=== PATIENT | male | born 1985 | race Caucasian/White ===

== ENCOUNTER 2018-06-22 17:19 | Emergency (ER) | payer MEDICAID ==
[~2018-06-22] VITALS: Ht 188 cm; Wt 142.9 kg
[2018-06-22 17:35] VITALS: BP 154/90
--- NOTE | 2018-06-22 17:40 | NUR ---
BIB SELF WITH C/O DOG BITE EARLIER TODAY ON LEFT ELBOW. PT STATES HE WAS SELLING SOLAR DOOR TO DOOR AND THE DOG BIT HIM. PT STATES THE DOG WAS A ARABIC LOVELACE NAMED "JIMENES." REDNESS AND BRUISING NOTED TO THE LEFT ELBOW. NO ACTIVE BLEEDING. DOCTOR MADE AWARE OF PATIENT'S STATUS
[2018-06-22 18:35] VITALS: BP 154/90
--- NOTE | 2018-06-22 18:35 | NUR ---
Patient discharged with v/s stable. Written and verbal after care instructions given and explained. Patient verbalized understanding. Ambulatory with steady gait. All questions addressed prior to discharge. Advised to follow up with PMD.
== END 2018-06-22 18:35 | disposition home or self-care (01) ==
LOC: MED 17:19
DX: S41.152A Open bite of left upper arm, initial encounter (principal); S50.312A Abrasion of left elbow, initial encounter; W54.0XXA Bitten by dog, initial encounter; Y93.89 Activity, other specified; Y92.89 Other specified places as the place of occurrence of the external cause; Y99.8 Other external cause status
CPT/HCPCS: 73080; 90471; 90715; 99283; Q0092

== ENCOUNTER 2019-01-06 18:05 | Emergency (ER) | payer MEDICAID, OTHER ==
[~2019-01-06] VITALS: Ht 188 cm; Wt 151.0 kg
[2019-01-06 18:30] VITALS: BP 140/85
--- NOTE | 2019-01-06 19:40 | NUR ---
CALLED FOR PT, NO ANSWER IN ER LOBBY OR IN FRONT OF ER. PT LWBS AT 1940
--- NOTE | 2019-01-06 19:50 | NUR ---
CALLED FOR PT FOR SECOND TIME, NO ANSWER IN ER LOBBY OR IN FRONT OF ER. PT LWBS AT 1940
--- NOTE | 2019-01-06 20:00 | NUR ---
CALLED FOR PT FOR THIRD TIME, NO ANSWER IN ER LOBBY OR IN FRONT OF ER. PT LWBS AT 1940
== END 2019-01-06 19:40 | disposition left against medical advice (07) ==
LOC: MED 18:05
DX: R51 Headache (principal); K13.79 Other lesions of oral mucosa; Z53.21 Procedure and treatment not carried out due to patient leaving prior to being seen by health care provider

== ENCOUNTER 2022-12-30 15:31 | Emergency (ER) | payer OTHER ==
[~2022-12-30] VITALS: Ht 188 cm; Wt 154.2 kg
[2022-12-30 15:46] VITALS: BP 136/86; PULSE 79; RESP 17; TEMP 97.6; O2SAT 98
[2022-12-30 16:37] LABS: BASOPHILS # (AUTO) 0.1 K/uL (0.00-0.22); BASOPHILS % (AUTO) 0.6 % (0.0-2.0); EOSINOPHILS # (AUTO) 0.1 K/uL (0-0.4); HEMATOCRIT 48.1 % (36-52); LYMPHOCYTES # (AUTO) 3.3 K/uL (2.0-11.5); LYMPHOCYTES % (AUTO) 32.2 % (20.5-51.1); MEAN CORPUSCULAR HEMOGLOBIN 29 pg (27-31); MEAN CORPUSCULAR HGB CONC 33 g/dL (33-37); MEAN CORPUSCULAR VOLUME 86.7 fL (80-94); MONOCYTES # (AUTO) 0.7 K/uL (0.8-1.0); MONOCYTES % (AUTO) 7.2 % (1.7-9.3); NEUTROPHILS # (AUTO) 6.1 K/uL (1.8-7.7); PLATELET COUNT (AUTO) 238 K/uL (140-450); RED BLOOD CELL COUNT(AUTO) 5.55 MIL/uL (4.20-6.10); RED CELL DISTRIBUTION WIDTH 14.3 % (11.6-13.7); WHITE BLOOD COUNT (AUTO) 10.3 K/uL (4.8-10.8)
[2022-12-30 16:48] VITALS: BP 134/81; PULSE 71; RESP 16; O2SAT 96
[2022-12-30 17:29] LABS: ALANINE AMINOTRANSFERASE 64 U/L (12-78); ALBUMIN 3.5 g/dL (3.4-5.0); ALKALINE PHOSPHATASE 59 U/L (50-136); ANION GAP 14.3 (8-16); ASPARTATE AMINOTRANSFERASE 27 U/L (15-37); CALCIUM 8.6 mg/dL (8.5-10.1); CARBON DIOXIDE 22.4 mmol/L (21-32); CHLORIDE 104 mmol/L (98-107); GFR ARICAN-AMERICAN 107 mL/min (>90); GFR NON ARICAN-AMERICAN 88 mL/min (>90); GLUCOSE 92 mg/dL (74-106); POTASSIUM 3.7 mmol/L (3.5-5.1); SODIUM SERUM 137 mmol/L (136-145); TOTAL PROTEIN, SERUM 7.2 g/dL (6.4-8.2); UREA NITROGEN, BLOOD 14 mg/dL (7-18)
[2022-12-30] MEDS ORDERED: IBUP-1842 PO (17:45)
== END 2022-12-30 18:02 | disposition home or self-care (01) ==
LOC: MED 15:31
DX: R07.9 Chest pain, unspecified (principal); Z79.899 Other long term (current) drug therapy
CPT/HCPCS: 36415; 71045; 80053; 84484; 85025; 93005; 99285